=== PATIENT | male | born 1985 | race Two or more races ===

== ENCOUNTER 2022-06-23 08:46 | Inpatient (IN) | payer OTHER ==
[~2022-06-23] VITALS: Ht 172.7 cm; Wt 79.8 kg
[2022-06-23 09:12] LABS: Urine WBC None Seen /hpf (0 - 3)
[2022-06-23 09:21] LABS: Urine Amorphous Crystal FEW /hpf (None Seen); Urine Bacteria NONE SEEN /hpf (None Seen); Urine Blood Negative /uL (Negative); Urine Specific Gravity 1.022 (1.001-1.035)
[2022-06-23 09:52] LABS: Basophils # (auto) 0 10 ^3/uL (0-0.2); Basophils % (auto) 0.2 % (0.0-2.0); Eosinophils # (auto) 0 10 ^3/uL (0-0.8); Eosinophils % (auto) 0.4 % (0.0-7.0); Hematocrit 42.9 % (41.0-53.0); Hemoglobin 14.4 g/dL (13.5-17.5); Lymphocytes # (auto) 1.5 10 ^3/uL (0.4-5.4); Lymphocytes % (auto) 15.1 % (10.0-50.0); Mean Corpuscular Hemoglobin 29.5 pg (28.0-32.0); Mean Corpuscular Hgb Conc. 33.6 g/dL (32.0-36.0); Mean Corpuscular Volume 87.8 fL (80.0-100.0); Monocytes # (auto) 0.8 10 ^3/uL (0-1.3); Monocytes % (auto) 8.6 % (0.0-12.0); Neutrophils # (auto) 7.4 10 ^3/uL (1.6-8.6); Neutrophils % (auto) 75.7 % (37.0-80.0); Red Blood Cells 4.89 10^6/uL (4.5-5.90); Red Cell Distribution Width 13.1 % (11.8-14.3); White Blood Cell 9.7 10^3/uL (4.4-10.8)
[2022-06-23 09:57] LABS: Albumin 4.1 g/dL (3.4-5.0); Calcium 9.3 mg/dL (8.5-10.1)
[2022-06-23 09:59] LABS: BUN/Creatinine Ratio 11.8; Bilirubin, Total 2.3 mg/dL (0.2-1.0)
[2022-06-23] MEDS ORDERED: metroNIDAZOLE 500MG/100ML 100 ML IV ONE (10:30)
[2022-06-23] MEDS ORDERED: cefTRIAXone 1GM/50ML D5W 50 ML IV ONE (10:30)
[2022-06-23] MEDS ORDERED: SODIUM CHLORIDE 0.9% 1,000 ML IV ONE (10:45)
[2022-06-23] MEDS ORDERED: ONDANSETRON HCL 4 MG/2 ML VIAL IV PRN (10:45)
[2022-06-23 11:09] LABS: INR 1.03 (0.9-1.15)
[2022-06-23] MEDS: LACTATED RINGER'S 1,000 ML IV SCH ×2 (13:37→18:45)
[2022-06-23 17:19] VITALS: BP 120/67
[2022-06-23 17:22] LABS: INR 1.03 (0.9-1.15); Partial Thromboplastin Time 33.7 sec (24.6-33.4)
[2022-06-23] MEDS: metroNIDAZOLE 500MG/100ML 100 ML IV SCH (19:26)
[2022-06-23 22:00] VITALS: BP 103/54
[2022-06-24] MEDS: LACTATED RINGER'S 1,000 ML IV SCH ×3 (03:16→18:27)
[2022-06-24] MEDS: metroNIDAZOLE 500MG/100ML 100 ML IV SCH ×3 (03:16→18:30)
[2022-06-24 05:00] VITALS: BP 102/57
[2022-06-24 06:56] LABS: Basophils # (auto) 0 10 ^3/uL (0-0.2); Basophils % (auto) 0.3 % (0.0-2.0); Eosinophils # (auto) 0.1 10 ^3/uL (0-0.8); Eosinophils % (auto) 1.1 % (0.0-7.0); Hematocrit 39.8 % (41.0-53.0); Hemoglobin 13.5 g/dL (13.5-17.5); Lymphocytes # (auto) 1.9 10 ^3/uL (0.4-5.4); Lymphocytes % (auto) 27.8 % (10.0-50.0); Mean Corpuscular Hemoglobin 29.6 pg (28.0-32.0); Mean Corpuscular Hgb Conc. 33.9 g/dL (32.0-36.0); Mean Corpuscular Volume 87.3 fL (80.0-100.0); Monocytes # (auto) 0.7 10 ^3/uL (0-1.3); Monocytes % (auto) 9.4 % (0.0-12.0); Neutrophils # (auto) 4.3 10 ^3/uL (1.6-8.6); Neutrophils % (auto) 61.4 % (37.0-80.0); Red Blood Cells 4.55 10^6/uL (4.5-5.90); Red Cell Distribution Width 12.7 % (11.8-14.3)
[2022-06-24 07:32] LABS: Potassium 4.4 mmol/L (3.5-5.1)
[2022-06-24 07:39] LABS: Albumin 3.4 g/dL (3.4-5.0); BUN/Creatinine Ratio 11.7; Bilirubin, Total 2.4 mg/dL (0.2-1.0); Calcium 8.9 mg/dL (8.5-10.1)
[2022-06-24 08:10] VITALS: BP 113/63
[2022-06-24] MEDS ORDERED: ceFAZolin 1GM/50ML 100 ML IV ONE (08:51)
[2022-06-24 09:05] VITALS: BP 113/63
[2022-06-24] MEDS ORDERED: SUCCINYLCHOLINE CHLORIDE 20 MG/ML 10ML VIAL IV ONE (09:09)
[2022-06-24] MEDS ORDERED: PROPOFOL 10 MG/ML 20 ML IV ONE (09:10)
[2022-06-24] MEDS ORDERED: fentaNYL CITRATE 100 MCG/2 ML VL ONE (09:11)
[2022-06-24] MEDS ORDERED: ROCURONIUM 10MG/ML 10ML VIAL IV ONE (09:11)
[2022-06-24] MEDS ORDERED: MIDAZOLAM HCL 2MG/2ML 2ml VIAL (1mg/ml) ONE (09:11)
[2022-06-24] MEDS ORDERED: DexAMETHasone SOD PHOS 10MG/1ML VIAL INJ ONE (09:31)
[2022-06-24] MEDS ORDERED: ONDANSETRON HCL 4 MG/2 ML VIAL ONE (09:40)
[2022-06-24] MEDS ORDERED: NEOSTIGMINE 1 MG/ML INJ (10mg/10ML VIAL) ONE (09:48)
[2022-06-24] MEDS ORDERED: GLYCOPYRROLATE 0.2 MG/ML 1ML VIAL ONE (09:48)
[2022-06-24] MEDS ORDERED: METOCLOPRAMIDE HCL 5MG/ml INJ 2ml VIAL IV PRN (10:00)
[2022-06-24] MEDS ORDERED: HYDROmorphone HCL 2 MG/ML VL/or syr IV PRN ×2 (10:00)
[2022-06-24] MEDS: cefTRIAXone 1GM/50ML D5W 50 ML IV SCH (11:17)
[2022-06-24 12:27] VITALS: BP 100/50
[2022-06-24] MEDS ORDERED: IBUPROFEN 400 MG TAB PO PRN (14:45)
[2022-06-24 16:24] VITALS: BP 110/59
[2022-06-24 22:00] VITALS: BP 95/47
[2022-06-25] MEDS: metroNIDAZOLE 500MG/100ML 100 ML IV SCH ×2 (03:14→11:14)
[2022-06-25] MEDS: LACTATED RINGER'S 1,000 ML IV SCH ×2 (04:02→10:27)
[2022-06-25 04:23] LABS: Basophils # (auto) 0 10 ^3/uL (0-0.2); Basophils % (auto) 0.1 % (0.0-2.0); Eosinophils # (auto) 0 10 ^3/uL (0-0.8); Eosinophils % (auto) 0.3 % (0.0-7.0); Hematocrit 34.3 % (41.0-53.0); Hemoglobin 12.2 g/dL (13.5-17.5); Lymphocytes # (auto) 1.6 10 ^3/uL (0.4-5.4); Lymphocytes % (auto) 22.7 % (10.0-50.0); Mean Corpuscular Hemoglobin 30.7 pg (28.0-32.0); Mean Corpuscular Hgb Conc. 35.5 g/dL (32.0-36.0); Mean Corpuscular Volume 86.4 fL (80.0-100.0); Monocytes # (auto) 0.7 10 ^3/uL (0-1.3); Monocytes % (auto) 9.1 % (0.0-12.0); Neutrophils # (auto) 4.9 10 ^3/uL (1.6-8.6); Neutrophils % (auto) 67.8 % (37.0-80.0); Red Blood Cells 3.96 10^6/uL (4.5-5.90); Red Cell Distribution Width 12.8 % (11.8-14.3); White Blood Cell 7.2 10^3/uL (4.4-10.8)
[2022-06-25 04:45] LABS: Albumin 3.1 g/dL (3.4-5.0); Calcium 8.9 mg/dL (8.5-10.1); Potassium 5.1 mmol/L (3.5-5.1)
[2022-06-25 04:50] LABS: Bilirubin, Total 1.2 mg/dL (0.2-1.0); Total Protein 6.3 g/dL (6.4-8.2)
[2022-06-25 05:00] VITALS: BP 98/49
[2022-06-25 08:10] VITALS: BP 105/62
[2022-06-25 09:00] VITALS: BP 105/62
[2022-06-25] MEDS: cefTRIAXone 1GM/50ML D5W 50 ML IV SCH (09:30)
[2022-06-25] MEDS ORDERED: CEPH-322 PO (10:45)
[2022-06-25] MEDS ORDERED: IBUP400T22 PO (10:46)
[2022-06-25 13:00] VITALS: BP 104/68
[2022-06-25 14:11] VITALS: BP 104/68
== END 2022-06-25 16:17 | disposition home or self-care (01) | DRG 343 ==
LOC: ER 08:46 → OVERFLOW 10:38 → WEST WING 16:09
PROVIDERS: ADMIT Registered Nurse; ATTEND Internal Medicine Nephrology
PROC: 0DTJ4ZZ Resection of Appendix, Percutaneous Endoscopic Approach (ICD-10-PCS; principal; 2022-06-24 09:19)
DX: K35.80 Unspecified acute appendicitis (principal); K52.9 Noninfective gastroenteritis and colitis, unspecified; Z20.822 Contact with and (suspected) exposure to COVID-19
CPT/HCPCS: 36415; 71045; 74176; 80053; 81001; 83605; 85025; 85610; 85730; 86850; 86900; 86901; 87040; 96365; 96368; G0378; J0330; J0690; J0696; J1100; J2250; J2405; J2704; J3490